=== PATIENT | female | born 1970 | race Caucasian/White ===

== ENCOUNTER 2019-10-05 12:15 | Emergency (ER) | payer OTHER, MEDICAID, SELFPAY ==
[2019-10-05 12:10] VITALS: BP 120/75; PULSE 89; RESP 16; TEMP 36.6; O2SAT 96
[2019-10-05 12:21] VITALS: BP 115/83; PULSE 70; RESP 18; O2SAT 97
--- NOTE | 2019-10-05 12:59 | ED.OVERDOSE ---
HPI - Overdose <BLAIRE Sun - Last Filed: 10/05/19 16:30> General Chief Complaint: Toxicology Problem Stated Complaint: Heroin OD Time Seen by Provider: 10/05/19 12:34 Source: patient and EMS Mode of arrival: Ambulatory Limitations: no limitations History of Present Illness HPI Narrative: This is a 49-year-old female, nonsmoker, who presents to ED with AFD medic after the received a phone call from patient's mother with concerns for heroin overdose. Patient reports she has been clean for about 1 year and 2 months and she relapsed using drugs again about 2 weeks ago. Patient reports she had injected double dose of heroin 10 minutes prior mother called EMS. No treatment has been received in route to ED by EMS. Patient reports she has Narcan nasal spray for use in case of overdose but mother does not know patient has this and does not know how to use it. 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 Patient reports she relapsed since she felt bored and felt trapped in the house due to Covid 19 which caused increased stress in her life. Patient also uses occasional marijuana and smokes methamphetamine. She denies coingestion of alcohol. Patient lives with grandmother and mother. Patient is interested in either inpatient or outpatient rehab treatment and is planning to contact inpatient treatment centers and [facility] which she had success in the past. Patient denies any recent illnesses. Related Data Allergies Allergy/AdvReac Type Severity Reaction Status Date / Time codeine [CODEINE] Allergy Unknown Unverified 09/16/17 11:57 Review of Systems <BLAIRE Sun - Last Filed: 10/05/19 16:30> Review of Systems Narrative: General: Denies fever, chills, fatigue, malaise, sweats. HEENT: Denies sinus pain, ear pain, sore throat, difficulty swallowing, dizziness. Respiratory: Denies dyspnea, cough, wheezing, hemoptysis, sputum. Cardiovascular: Denies chest pain, palpitations, orthopnea, edema. Gastrointestinal: Denies nausea, vomiting, abdominal pain, diarrhea, constipation, melena. : Denies dysuria, frequency, incontinence, hematuria, urinary retention. Musculoskeletal: Denies weakness, joint pain or bony pain. Skin: Denies rash, skin lesions, or other. Neurologic: Denies weakness, headache, numbness, change in speech, confusion, seizures, incoordination. Psychiatric: Denies suicidal or homicidal ideation. Patient reports is interested in either inpatient or outpatient rehab program for drug use. 12-point review of systems is negative except for those stated above. Patient History <BLAIRE Sun - Last Filed: 10/05/19 16:30> Medical History Abscess of arm, right (Acute) Social History Smoking Status: Never smoker Smoking Status: Never smoker Substance Use Type: marijuana, heroin and methamphetamine Exam <BLAIRE Sun - Last Filed: 10/05/19 16:30> Narrative Exam Narrative: GEN: Appears to be sleepy but awake, oriented x 3, thin appearing and in no acute distress. Head: Normal cephalic, atraumatic. No scalp or temporal tenderness, palpable mass or rash. EYES: Pupils are equal, round, and reactive to light. Pupils 1 mm bilaterally. Extraocular muscles are intact bilaterally. There is no subconjunctival hemorrhage, exudate and sclera non-icteric. ENT: Hearing grossly intact. Nose without bleeding, purulent discharge. Mucous membrane moist, no mucosal lesion. Throat without erythema, tonsillar hypertrophy or exudate. Uvula in midline, airway patent. Neck: Trachea in midline. No JVD, non-tender without lymphadenopathy. No masses or thyroid megaly. Supple, non-tender and no meningeal signs. CARDIAC: Normal regular rate and rhythm without murmurs, gallops, or rubs. No chest wall tenderness. No peripheral edema, cyanosis or pallor. Capillary refill is less than 2 seconds. RESPIRATORY: Lungs are clear to auscultate bilaterally. No cough, wheezes, rales, or rhonchi. No stridor, respiratory distress, increase work of breathing, or accessary muscle used. ABD: Abdomen soft, nontender and non-distended. No guarding or rebound tenderness to palpate. Bowel sounds are normal in all 4 quadrants. There is no palpable masses or organomegaly. EXT: Full painless ROM of all extremities with no loss of sensation, strength, effusion or edema. SKIN: Several puncture marcano in bilateral upper extremities without signs of infection such as warmth, swelling, erythema. BACK: Nontender without deformity or crepitance. No flank tenderness. NEUROLOGICAL: Alert and oriented to place, time and person. Sensation and motor function intact bilaterally. No facial droops, dysphasia. PSYCHIATRIC: Good judgement and reason, without hallucinations, abnormal affect or abnormal behaviors during the examination. Patient is not suicidal. Initial Vital Signs Initial Vital Signs: Vital Signs Temperature 97.8 F 10/05/19 12:10 Pulse Rate 89 10/05/19 12:10 Respiratory Rate 16 10/05/19 12:10 Blood Pressure 120/75 10/05/19 12:10 Pulse Oximetry 96 10/05/19 12:10 <Jj Caba MD - Last Filed: 10/06/19 07:44> Initial Vital Signs Initial Vital Signs: Vital Signs Temperature 97.8 F 10/05/19 12:10 Pulse Rate 89 10/05/19 12:10 Respiratory Rate 16 10/05/19 12:10 Blood Pressure 120/75 10/05/19 12:10 Pulse Oximetry 96 10/05/19 12:10 Scores <BLAIRE Sun - Last Filed: 10/05/19 16:30> GCS Javier coma scale eye opening: Spontaneous Javier coma scale verbal response: Orientated Javier coma scale motor response: Obey commands Javier coma scale total score: 15 Course <BLAIRE Sun - Last Filed: 10/05/19 16:30> Orders Ordered: ED Orders 10/05/19 12:52 Consult to [facility] Esthetician And Manager [employer] Stat Vital Signs Vital signs: Vital Signs - 8 hr 10/05/19 12:10 10/05/19 12:21 10/05/19 14:11 Temperature 97.8 F Pulse Rate 89 70 72 Respiratory Rate 16 18 18 Blood Pressure 120/75 Blood Pressure [Left Arm] 115/83 103/76 Pulse Oximetry 96 97 99 10/05/19 15:20 Temperature Pulse Rate 79 Respiratory Rate 20 Blood Pressure 105/71 Blood Pressure [Left Arm] Pulse Oximetry 100 <Jj Caba MD - Last Filed: 10/06/19 07:44> Orders Ordered: ED Orders 10/05/19 12:52 Consult to DAIRY FEED WORKER - Esthetician And Manager [employer] Stat Vital Signs Vital signs: Vital Signs - 8 hr 10/05/19 12:10 10/05/19 12:21 10/05/19 14:11 Temperature 97.8 F Pulse Rate 89 70 72 Respiratory Rate 16 18 18 Blood Pressure 120/75 Blood Pressure [Left Arm] 115/83 103/76 Pulse Oximetry 96 97 99 10/05/19 15:20 Temperature Pulse Rate 79 Respiratory Rate 20 Blood Pressure 105/71 Blood Pressure [Left Arm] Pulse Oximetry 100 MDM - Overdose <BLAIRE Sun - Last Filed: 10/05/19 16:30> Differential Diagnosis Differential diagnosis: Likely drug overdose Medical Records Attestation: I reviewed the patient's medical records. MDM Narrative Medical decision making narrative: This is a 49-year-old female who has history of polysubstance abuse presents to ED with heroin overdose. Mother found patient dozing off after she had injected heroin about 10 minutes prior to this and mother initiated EMS call with concerns for OD. Patient appears to be sleepy but awake and states she has intend to stop using drugs and is hoping to find either the patient or outpatient rehab program to help her with detox. Patient states she was abstinence from using drugs about 1 year and 2 months and relapsed 2 weeks ago. She uses IV drug use of heroin and occasionally uses marijuana and smokes methamphetamine. Patient denies recent illnesses. Consulted DAIRY FEED WORKER to help find either in or outpatient rehab program. She is awake and eating lunch that has been provided to her in ED. she is calm and cooperative with appropriate affect. DAIRY FEED WORKER Consul has been completed at bedside by Concetta. It is confirmed that patient would like to reestablish care at [facility] for outpatient treatment for drug use and she has good support system from her grandmother, mother and her ex who has been sober from using drugs. Patient agrees with the follow-up treatment plan with [facility] and is planning to contact tomorrow. She is alert and oriented x3. Return precautions were discussed with patient and patient verbalized understanding and in agreement with treatment plan. Discharge Plan Departure Patient Disposition: Home Clinical Impression: Polysubstance abuse Discharge Date/Time: 10/05/19 15:19 Instructions: DI for Drug Abuse and Drug Addiction Activity Restrictions/Additional Instructions: You have been diagnosed with [polysubstance abuse and drug addiction and seeking outpatient rehab therapy. You were evaluated with wrapper caser while in ED. We'll assist you trying to reconnect with [facility] by sending them record from today's visit. You have been awake and alert while in ED.]. What to do: *Take your medications as directed. No new medications to go home with and please refrain from using illicit drugs. *Follow up with your primary care provider in 2-3 days, call for an appointment. Let them know you were seen in the ED and that we asked you to be seen in follow up. *Return to ED if you have any new, worsening, or concerning symptoms, such as [chest pain, breathing difficulty, unable to tolerate fluids, fever, respiratory depression, fever or any acute concerns]. Referrals: [facility] [Outside]
--- NOTE | 2019-10-05 13:07 | PC.NURSE ---
pt is awake and alert. requested food. pt is now eating a salad, potatoe chips and a granola bar. drinking milk without any difficulty.
[2019-10-05 14:11] VITALS: BP 103/76; PULSE 72; RESP 18; O2SAT 99
[2019-10-05 15:20] VITALS: BP 105/71; PULSE 79; RESP 20; O2SAT 100
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
== END 2019-10-05 15:19 | disposition home or self-care (01) ==
PROVIDERS: Emergency Provider Nurse Practitioner Family
DX: F19.10 Other psychoactive substance abuse, uncomplicated (principal)
CPT/HCPCS: 99283

== ENCOUNTER → 2020-06-13 16:33 | Outpatient (CLI) | payer OTHER, MEDICAID, SELFPAY ==
--- NOTE | 2020-06-13 16:36 | DI.MG.S_ITS ---
BILATERAL DIGITAL SCREENING MAMMOGRAM 3D/2D WITH CAD: 06/13/2020 CLINICAL: Routine screening. Family history of breast cancer. Comparison is made to exams dated: 06/24/2017 mammogram - [facility], 05/11/2012 mammogram, and 08/01/2009 mammogram - [facility]. The tissue of both breasts is extremely dense, which lowers the sensitivity of mammography. Current study was also evaluated with a Computer Aided Detection (CAD) system. No significant masses, calcifications, or other findings are seen in either breast. There has been no significant interval change. IMPRESSION: NEGATIVE There is no mammographic evidence of malignancy. A 1 year screening mammogram is recommended. This exam was interpreted at Station ID: [id number]. NOTE: For mammograms, a report in lay terms will be sent to the patient. Approximately 15% of breast malignancies will not be visualized mammographically. In the management of a palpable breast mass, a negative mammogram must not discourage biopsy of a clinically suspicious lesion. Electronically Signed By: Ruy sheppard/aly:06/13/2020 17:04:01 letter sent: Normal Exam ACR BI-RADS Category 1: Negative [id number]
== END ==
PROVIDERS: Referring Provider Chiropractor; Visit Provider Chiropractor
DX: Z12.31 Encounter for screening mammogram for malignant neoplasm of breast (principal); Z80.3 Family history of malignant neoplasm of breast
CPT/HCPCS: 77063; 77067

== ENCOUNTER → 2024-07-27 16:06 | Outpatient (CLI) | payer OTHER, SELFPAY ==
--- NOTE | 2024-07-27 16:07 | DI.RAD.S_ITS ---
PROCEDURE: XR LUMBAR SPINE 2-3V INDICATIONS: postural change, back pain TECHNIQUE: 3 views of the lumbar spine were acquired. COMPARISON: None. FINDINGS: Bones: 5 [id number] vertebrae are present. There is normal bony alignment. No vertebral body compression fractures. No suspicious bony lesions. Lower lumbar spine disc space narrowing and hypertrophic arthropathy is associated grade 1 anterior spondylolisthesis L5-S1. Convex right thoracolumbar scoliosis. Soft tissues: Overlying bowel gas pattern is normal. No suspicious soft tissue calcifications. IMPRESSION: Degenerative disc disease and arthropathy. Thoracolumbar dextroscoliosis. Grade 1 degenerative L5-S1 spondylolisthesis Approved by: Pedro Pablo Newell M.D. on 07/27/2024 at 16:29
--- NOTE | 2024-07-27 16:07 | DI.RAD.S_ITS ---
PROCEDURE: XR THORACIC SPINE 2V INDICATIONS: postural change, back pain TECHNIQUE: 3 views of the thoracic spine were acquired. COMPARISON: [facility], CR, XR LUMBAR SPINE 2-3V, 07/27/2024, 16:26. FINDINGS: Bones: Possible mild height loss of a lower thoracic vertebral body, age indeterminate. No suspicious bony lesions. 12 pairs of ribs are noted, and appear intact where visualized. There is multilevel intervertebral disc height loss with degenerative endplate changes and marginal spurring. Soft tissues: No paravertebral stripe thickening. IMPRESSION: Possible mild height loss of a lower thoracic vertebral body, age indeterminate. Multilevel degenerative changes of the thoracic spine. Dictated by: John Seals M.D. on 07/27/2024 at 17:12 Approved by: John Seals M.D. on 07/27/2024 at 17:14
== END ==
PROVIDERS: PCP Nurse Practitioner; Referring Provider Student in an Organized Health Care Education/Training Program; Visit Provider Student in an Organized Health Care Education/Training Program
DX: M51.360 Other intervertebral disc degeneration, lumbar region with discogenic back pain only (principal); M47.814 Spondylosis without myelopathy or radiculopathy, thoracic region; M47.816 Spondylosis without myelopathy or radiculopathy, lumbar region; M41.9 Scoliosis, unspecified; M43.17 Spondylolisthesis, lumbosacral region; M54.9 Dorsalgia, unspecified
CPT/HCPCS: 72070; 72100

== ENCOUNTER → 2024-08-17 09:29 | Outpatient (CLI) | payer OTHER, SELFPAY ==
--- NOTE | 2024-08-17 09:31 | DI.MG.S_ITS ---
MM screening mammo BI: 08/17/2024. BI-RADS: 2 CLINICAL: 54-year old female for bilateral screening mammogram. Tyrer-Cuzick lifetime risk of 32.0%. Current reported family history of breast cancer: sister. PRIOR EXAMS 06/13/2020, 06/24/2017. MAMMOGRAPHY TECHNIQUE: 2D and 3D (tomosynthesis) digital mammographic views obtained, with additional images as needed for full coverage. Current study was also evaluated with a Computer Aided Detection (CAD) system. DENSITY D. The breasts are extremely dense, which lowers the sensitivity of mammography. MAMMOGRAPHY FINDINGS Right: No suspicious mass, asymmetry, microcalcification, or other abnormality seen. Left: Benign-appearing calcification noted on the left. There are no suspicious masses, calcifications, or other findings in the breast. IMPRESSION: Right * No evidence of malignancy. Left * No evidence of malignancy with benign findings. RECOMMENDATIONS Bilateral * According to the Tyrer-Cuzick Risk Assessment Model, based on the information provided your patient has a greater than 20% lifetime risk for developing breast cancer. Consider supplemental screening with breast MRI and participation in a high risk screening program. * Annual screening mammography. OVERALL ASSESSMENT CATEGORY BI-RADS-2: Benign. The [employer] recommends annual screening mammography beginning at age 40 for women with average risk of breast cancer. ELECTRONICALLY SIGNED: Maria Oliveira M.D. on 08/17/2024 at 12:54:53 PM PT Interpreting Station ID: [id number]
== END ==
LOC: MAMMO 09:30
PROVIDERS: PCP Student in an Organized Health Care Education/Training Program; Referring Provider Student in an Organized Health Care Education/Training Program; Visit Provider Student in an Organized Health Care Education/Training Program
DX: Z12.31 Encounter for screening mammogram for malignant neoplasm of breast (principal); Z80.3 Family history of malignant neoplasm of breast; R92.343 Mammographic extreme density, bilateral breasts
CPT/HCPCS: 77063; 77067

== ENCOUNTER 2024-09-17 15:12 | Emergency (ER) | payer OTHER, SELFPAY ==
[2024-09-17 15:24] VITALS: BP 182/92; PULSE 89; RESP 18; TEMP 36.6; O2SAT 99; BMI 16.6
--- NOTE | 2024-09-17 15:40 | ED.SKABFB ---
HPI - Skin/Abscess/Foreign Bdy <Taryn Rodarte PA-C - Last Filed: 09/17/24 19:53> General Chief complaint: Skin/Abscess/Foreign Body Stated complaint: something bad in armpit Time Seen by Provider: 09/17/24 15:38 Source: patient Mode of arrival: Ambulatory Limitations: no limitations History of Present Illness HPI narrative: Ms. Nuñez is a very pleasant 54-year-old female with a past history of polysubstance use, sober for 2 years, who presents to the emergency department for left underarm rash/drainage times 4 days. Patient states she has abscess in the right axilla many years ago, does not remember if it was MRSA. Reports about a week ago she shaved her under arms and a few days later noticed the development of small red bumps/pimples in the left axilla. These bumps have continued to get larger, drain, and are now very painful. She is tried Neosporin and a Band-Aid without relief. She denies any other symptoms or pain elsewhere in her body. No fevers, chills, nausea, vomiting, diarrhea, arm redness or swelling. Related Data Previous Rx's Medication Instructions Recorded chlorhexidine gluconate 4 % 1 applic topical DAILY 2 doses 09/17/24 topical liquid (Hibiclens) #473 mL doxycycline hyclate 100 mg capsule 100 mg PO BID 7 days #14 caps 09/17/24 Allergies Allergy/AdvReac Type Severity Reaction Status Date / Time codeine [CODEINE] Allergy Unknown Verified 09/17/24 16:41 Review of Systems <Taryn Rodarte PA-C - Last Filed: 09/17/24 19:53> Review of Systems ROS Unobtainable: All systems reviewed & are unremarkable except as noted in HPI and below Patient History <Taryn Rodarte PA-C - Last Filed: 09/17/24 19:53> Medical History (Updated 09/17/24 @ 18:20 by Taryn Rodarte PA-C) Abscess of arm, right Social History Smoking Status: Current some day smoker Smoking Status: Current some day smoker tobacco type: vaping Exam <Taryn Rodarte PA-C - Last Filed: 09/17/24 19:53> Narrative Exam Narrative: GENERAL: 54 year old patient appears older than stated age. In no acute distress. HEAD: Atraumatic. Normocephalic. EYES:No scleral icterus. No injection or drainage. CARDIOVASCULAR: Regular rate and rhythm. RESPIRATORY: ?Nonlabored respirations. ?Speaking in clear, full sentences.? GASTROINTESTINAL: Abdomen soft, non-tender, nondistended. EXTREMITIES: In the left axilla, there is a collection of approximately 8 indurated and fluctuant erythematous raised areas consistent with multiple small abscesses/folliculitis. There is small amounts of active purulent drainage from some of the lesions. There is no surrounding streaking erythema and no tenderness to palpation of the left upper arm or left chest wall. No similar lesions in the right axilla. NEURO: AOx3. ?Clear speech. ?Moves all 4 extremities appropriately. SKIN: No other rashes or streaking erythema. Initial Vital Signs Initial Vital Signs: Vital Signs Temperature 97.9 F 09/17/24 15:24 Pulse Rate 89 09/17/24 15:24 Respiratory Rate 18 09/17/24 15:24 Blood Pressure 182/92 H 09/17/24 15:24 Pulse Oximetry 99 09/17/24 15:24 Oxygen Delivery Method Room Air 09/17/24 15:24 <Sherrell Garvin DO - Last Filed: 09/19/24 08:49> Initial Vital Signs Initial Vital Signs: Vital Signs Temperature 97.9 F 09/17/24 15:24 Pulse Rate 89 09/17/24 15:24 Respiratory Rate 18 09/17/24 15:24 Blood Pressure 182/92 H 09/17/24 15:24 Pulse Oximetry 99 09/17/24 15:24 Oxygen Delivery Method Room Air 09/17/24 15:24 <Josy Nettles DO - Last Filed: 09/20/24 01:34> Initial Vital Signs Initial Vital Signs: Vital Signs Temperature 97.9 F 09/17/24 15:24 Pulse Rate 89 09/17/24 15:24 Respiratory Rate 18 09/17/24 15:24 Blood Pressure 182/92 H 09/17/24 15:24 Pulse Oximetry 99 09/17/24 15:24 Oxygen Delivery Method Room Air 09/17/24 15:24 Procedures <Taryn Rodarte PA-C - Last Filed: 09/17/24 19:53> Abscess I/D I&D #1: Time of procedure: 18:15 Site: upper extremity (axilla) Side (if applicable): left Local Anesthetic: lidocaine 1% and with epi Amount of anesthesia used (mL): 3 Technique: incised with #11 blade (7 separate incisions ) Amount of fluid expressed (mL): 5 Irrigation: Yes Packing used?: none Course <Taryn Rodarte PA-C - Last Filed: 09/17/24 19:53> Orders Ordered: Discontinued Medications Acetaminophen (Acetaminophen 325 Mg Tablet) 975 mg PO NOW ONE Stop: 09/17/24 16:30 Last Admin: 09/17/24 16:45 Dose: 975 mg Documented By: RB Bacitracin (Bacitracin Oint 0.9 Gm Pckt) 1 applic TOP NOW ONE Stop: 09/17/24 18:15 Last Admin: 09/17/24 18:23 Dose: 1 applic Documented By: RB Doxycycline Hyclate (Doxycycline Hyclate 100 Mg Tablet) 100 mg PO NOW ONE Stop: 09/17/24 16:30 Last Admin: 09/17/24 16:46 Dose: 100 mg Documented By: RB Ibuprofen (Ibuprofen 400 Mg Tablet) 600 mg PO NOW ONE Stop: 09/17/24 16:30 Last Admin: 09/17/24 16:45 Dose: 600 mg Documented By: RB Lidocaine/Epinephrine (Lidocaine 1% W/Epi 10ml) 5 ml INJ INTRA-OP ONE Stop: 09/17/24 16:30 Last Admin: 09/17/24 16:46 Dose: 5 ml Documented By: RB Vital Signs Vital signs: Vital Signs - 8 hr 09/17/24 15:24 09/17/24 19:41 Temperature 97.9 F Pulse Rate 89 84 Respiratory Rate 18 22 Blood Pressure 182/92 H 180/80 H Pulse Oximetry 99 94 Oxygen Delivery Method Room Air Room Air <Sherrell Garvin DO - Last Filed: 09/19/24 08:49> Orders Ordered: Discontinued Medications Acetaminophen (Acetaminophen 325 Mg Tablet) 975 mg PO NOW ONE Stop: 09/17/24 16:30 Last Admin: 09/17/24 16:45 Dose: 975 mg Documented By: RB Bacitracin (Bacitracin Oint 0.9 Gm Pckt) 1 applic TOP NOW ONE Stop: 09/17/24 18:15 Last Admin: 09/17/24 18:23 Dose: 1 applic Documented By: RB Doxycycline Hyclate (Doxycycline Hyclate 100 Mg Tablet) 100 mg PO NOW ONE Stop: 09/17/24 16:30 Last Admin: 09/17/24 16:46 Dose: 100 mg Documented By: RB Ibuprofen (Ibuprofen 400 Mg Tablet) 600 mg PO NOW ONE Stop: 09/17/24 16:30 Last Admin: 09/17/24 16:45 Dose: 600 mg Documented By: RB Lidocaine/Epinephrine (Lidocaine 1% W/Epi 10ml) 5 ml INJ INTRA-OP ONE Stop: 09/17/24 16:30 Last Admin: 09/17/24 16:46 Dose: 5 ml Documented By: RB Vital Signs Vital signs: Vital Signs - 8 hr 09/17/24 15:24 09/17/24 19:41 Temperature 97.9 F Pulse Rate 89 84 Respiratory Rate 18 22 Blood Pressure 182/92 H 180/80 H Pulse Oximetry 99 94 Oxygen Delivery Method Room Air Room Air <Josy Nettles DO - Last Filed: 09/20/24 01:34> Orders Ordered: Discontinued Medications Acetaminophen (Acetaminophen 325 Mg Tablet) 975 mg PO NOW ONE Stop: 09/17/24 16:30 Last Admin: 09/17/24 16:45 Dose: 975 mg Documented By: JERONIMO Bacitracin (Bacitracin Oint 0.9 Gm Pckt) 1 applic TOP NOW ONE Stop: 09/17/24 18:15 Last Admin: 09/17/24 18:23 Dose: 1 applic Documented By: RB Doxycycline Hyclate (Doxycycline Hyclate 100 Mg Tablet) 100 mg PO NOW ONE Stop: 09/17/24 16:30 Last Admin: 09/17/24 16:46 Dose: 100 mg Documented By: RB Ibuprofen (Ibuprofen 400 Mg Tablet) 600 mg PO NOW ONE Stop: 09/17/24 16:30 Last Admin: 09/17/24 16:45 Dose: 600 mg Documented By: RB Lidocaine/Epinephrine (Lidocaine 1% W/Epi 10ml) 5 ml INJ INTRA-OP ONE Stop: 09/17/24 16:30 Last Admin: 09/17/24 16:46 Dose: 5 ml Documented By: RB Vital Signs Vital signs: Vital Signs - 8 hr 09/17/24 15:24 09/17/24 19:41 Temperature 97.9 F Pulse Rate 89 84 Respiratory Rate 18 22 Blood Pressure 182/92 H 180/80 H Pulse Oximetry 99 94 Oxygen Delivery Method Room Air Room Air MDM - Skin/Abscess/Foreign Bdy <Taryn Rodarte PA-C - Last Filed: 09/17/24 19:53> Medical Records Attestation: I reviewed the patient's medical records. Medical records narrative: ED visit 10/05/2019 abscess of right arm, polysubstance abuse. MDM Narrative Medical decision making narrative: MDM Narrative Medical decision making narrative: CC: ??something bad in armpit? Complicating co-morbidities: History of IVDU -sober for 2 years Data collected from: Patient Social determinants of health that may influence the patients condition: ?Prior history of drug use, self-pay Medical records reviewed: ?Prior ED visit 10/05/2019 Differential considered: ?Abscess, folliculitis, cellulitis, hidradenitis suppurativa Exam documented above, pertinent findings include: Multiple small abscesses and left axilla with no surrounding streaking erythema Consultations: Discussed case with the attending ED physician, Dr. Nettles Treatments: Ibuprofen, acetaminophen, lidocaine with epi, incision and drainage, oral doxycycline Re-evaluations: Patient tolerated I and D well. The area was cleansed with chlorhexidine, anesthetized with lidocaine with epinephrine, and 7 individual incisions were made into each small abscess. Purulent drainage came out of each abscess cavity. Each of these were small therefore no packing was used however they were irrigated and then a bacitracin dressing was applied. Discussion: 54-year-old female presents to the emergency department for left underarm infection for the last 5 days. She does have a history of IV drug use but has been clean for the last 2 years. Suspects that infection came from shaving her underarm. She is not having any fevers, chills, flu-like symptoms or other systemic signs, there is no streaking erythema of the arm. She is afebrile and not tachycardic. After shared decision-making with the patient, incision and drainage was performed of each small abscess and wound culture was obtained. She was treated with ibuprofen and Tylenol for pain, and she was started on doxycycline b.i.d. x7 days for suspected mrsa. Recommended cleansing with Hibiclens which was prescribed, warm compresses, proper wound care. We discussed strict ED return precautions and follow up with PCP. Patient verbalized understanding of all information and is agreeable to the plan. She is stable for discharge home. <Sherrell Garvin, DO - Last Filed: 09/19/24 08:49> [facility] Narrative Medical decision making narrative: [facility] Narrative Medical decision making narrative: CC: ??something bad in armpit? Complicating co-morbidities: History of IVDU -sober for 2 years Data collected from: Patient Social determinants of health that may influence the patients condition: ?Prior history of drug use, self-pay Medical records reviewed: ?Prior ED visit 10/05/2019 Differential considered: ?Abscess, folliculitis, cellulitis, hidradenitis suppurativa Exam documented above, pertinent findings include: Multiple small abscesses and left axilla with no surrounding streaking erythema Consultations: Discussed case with the attending ED physician, Dr. Nettles Treatments: Ibuprofen, acetaminophen, lidocaine with epi, incision and drainage, oral doxycycline Re-evaluations: Patient tolerated I and D well. The area was cleansed with chlorhexidine, anesthetized with lidocaine with epinephrine, and 7 individual incisions were made into each small abscess. Purulent drainage came out of each abscess cavity. Each of these were small therefore no packing was used however they were irrigated and then a bacitracin dressing was applied. Discussion: 54-year-old female presents to the emergency department for left underarm infection for the last 5 days. She does have a history of IV drug use but has been clean for the last 2 years. Suspects that infection came from shaving her underarm. She is not having any fevers, chills, flu-like symptoms or other systemic signs, there is no streaking erythema of the arm. She is afebrile and not tachycardic. After shared decision-making with the patient, incision and drainage was performed of each small abscess and wound culture was obtained. She was treated with ibuprofen and Tylenol for pain, and she was started on doxycycline b.i.d. x7 days for suspected mrsa. Recommended cleansing with Hibiclens which was prescribed, warm compresses, proper wound care. We discussed strict ED return precautions and follow up with PCP. Patient verbalized understanding of all information and is agreeable to the plan. She is stable for discharge home. 09/19/24 Dr. Garvin, patient's culture grew light MRSA, sensitive to doxycycline patient was discharged on no additional changes Discharge Plan Departure Patient Disposition: Home Clinical Impression: Abscess of left axilla, Folliculitis of left axilla Instructions: DI for Skin Abscess Activity Restrictions/Additional Instructions: Dear Ms. Nuñez, Thank you for coming to the emergency department. Today you had an infection of your left underarm drained. It is very important to complete the full course of antibiotics, wash this area 1-2 times daily, apply warm compresses to help with drainage, and keep the area clean, dry, covered at all times. Please take Ibuprofen (Motrin/Advil) or Acetaminophen (Tylenol) for pain. These are available over the counter. You may take Ibuprofen 600 mg every 8 hours with food for pain. You may also take Acetaminophen 650 mg every 4-6 hours for pain. Do not exceed 3000 mg of Tylenol a day as this can cause liver damage. Do not drink alcohol with either of these medications. Please follow up with your primary care doctor within the next 2-3 days for ER follow-up. (If you do not have a PCP you can call [phone]. ?to schedule an appointment with an [facility] Primary Care Provider) IF YOU DEVELOP ANY NEW OR WORSENING SYMPTOMS, RETURN TO THE ER! Please read the attached instructions, they highlight more specific treatments and interventions for you at home. Thank you for letting me participate in your care, Taryn Rodarte PA-C Prescriptions: New doxycycline hyclate 100 mg capsule 100 mg PO BID 7 Days Qty: 14 0RF chlorhexidine gluconate [Hibiclens] 4 % liquid 1 applic topical DAILY Qty: 473 0RF Referrals: Colette Guevara MD [Primary Care Provider] - Stand Alone Forms: Patient Portal/API/Survey ED Sign-out <Josy Nettles DO - Last Filed: 09/20/24 01:34> [facility]ign ED Attending Lupe Attestation: I was available for consultation. I was shown a picture of this agreed was I and D. and did not have a [id number] with this patient
[2024-09-17] MEDS: IBUPROFEN 400 MG TABLET 600 MG PO (16:45)
[2024-09-17] MEDS: ACETAMINOPHEN 325 MG TABLET 975 MG PO (16:45)
[2024-09-17] MEDS: LIDOCAINE 1% W/EPI 10ML 5 ML INJ (16:46)
[2024-09-17] MEDS: DOXYCYCLINE HYCLATE 100 MG TABLET PO (16:46)
[2024-09-17] MEDS: BACITRACIN OINT 0.9 GM PCKT 1 APPLIC TOP (18:23)
[2024-09-17 19:41] VITALS: BP 180/80; PULSE 84; RESP 22; O2SAT 94
== END 2024-09-17 19:41 | disposition home or self-care (01) ==
PROVIDERS: Emergency Provider Physician Assistant; PCP Student in an Organized Health Care Education/Training Program
DX: L02.412 Cutaneous abscess of left axilla (principal); L73.8 Other specified follicular disorders
CPT/HCPCS: 87070; 87075; 87077; 87147; 87186; 87205; 99283

== ENCOUNTER → 2025-05-20 18:29 | Outpatient (CLI) | payer OTHER, SELFPAY ==
[2025-05-20 19:45] LABS: Influenza A - CEPHEID Flu A NEGATIVE (NEGATIVE); Influenza B - CEPHEID Flu B NEGATIVE (NEGATIVE)
[2025-05-20 20:09] LABS: COVID-19 CEPHEID 4-PLEX PCR Negative (Negative)
== END ==
PROVIDERS: PCP Student in an Organized Health Care Education/Training Program; Visit Provider Registered Nurse
DX: R05.1 Acute cough (principal)
CPT/HCPCS: 87637